=== PATIENT | female | born 1965 | race Caucasian/White ===

== ENCOUNTER → 2021-12-10 | Outpatient (CLI) | payer OTHER | END | disposition home or self-care (01) | LOC: LABWHC1 16:09 | PROVIDERS: ATTEND Surgery Plastic and Reconstructive Surgery | DX: I11.9 Hypertensive heart disease without heart failure (principal) | CPT/HCPCS: 36415; 93005 ==

== ENCOUNTER 2022-01-09 12:34 | Day surgery (SDC) | payer OTHER ==
[2021-12-31 11:38] VITALS: BMI 31.8
--- NOTE | 2022-01-09 07:51 | P.GSHP ---
History of Present Illness H&P Date: 01/09/22 CHIEF COMPLAINT: Ventral hernia. HISTORY OF PRESENT ILLNESS: The patient is a 56-year-old female who presents with swelling along the abdomen for over 3 months with pain and tenderness. Findings were consistent with ventral hernia.Now she presents for further evaluation and management. PAST MEDICAL HISTORY: Please see list and reviewed. PAST SURGICAL HISTORY: Please see list and reviewed. MEDICATIONS: Please see list and reviewed. ALLERGIES: Please see list and reviewed. SOCIAL HISTORY: Please see list and reviewed. FAMILY HISTORY: No reports of Crohn disease or ulcerative colitis. REVIEW OF ORGAN SYSTEMS: CONSTITUTIONAL: No reports of fevers or chills. GI: Denies any blood in stools or constipation. HEENT: Denies any trouble with vision, hearing or nosebleeds. No difficulty swallowing. LYMPHATIC: The patient denies any lumps and bumps around the neck. ENDOCRINE: Denies any thyroid disorders. Denies any blood sugar glucose intolerance. RESPIRATORY: Denies pneumonia. Denies any troubles with breathing or dyspnea on exertion. CARDIOVASCULAR: Denies any chest pain, palpitations, or recent heart attacks. Has hypertensive heart disease GENITOURINARY: Denies any blood in urine or increased urinary frequency. MUSCULOSKELETAL: Denies any back pain, stiffness, joint arthritis. NEUROLOGIC: Denies any numbness or tingling along the distal extremities. No seizure disorders or headaches. PSYCHIATRIC: No depression. No suidical ideation. HEMATOLOGIC: Denies any abnormal bleeding or bruising. BREASTS: Denies any breast lumps, pain or nipple discharge. PHYSICAL EXAM: VITAL SIGNS: Stable GENERAL: Well-developed pleasant female in no acute distress. HEENT: No scleral icterus. Extraocular movements grossly intact. Moist buccal mucosa. NECK: Supple without lymphadenopathy. CHEST: Unlabored respirations. Equal bilateral excursions. CARDIOVASCULAR: Regular rate and rhythm. Distal 2+ pulses. ABDOMEN: Soft, nondistended. Periumbilical hernia. Protuberant. MUSCULOSKELETAL: No clubbing, cyanosis, or edema. SKIN: Well perfused. PSYCH: Alert and oriented. No focal or lateralizing signs. ASSESSMENT: 1. Ventral hernia. PLAN: 1. Recommend proceeding with robotic ventral hernia repair with mesh. 2. Benefits and risks of surgical intervention was discussed including possibility of open technique. 3. DVT prophylaxis. 4. Antibiotic prophylaxis. 5. She is elevated risk with hypertensive heart disease Past Medical History Past Medical History: Hypertension Additional Past Medical History / Comment(s): hx varicose veins, History of Any Multi-Drug Resistant Organisms: None Reported Past Surgical History: Appendectomy, Section, Cholecystectomy, Ear Surgery, Hysterectomy Additional Past Surgical History / Comment(s): varicose vein surgery rt leg 10/2021, left leg varicose vein surgery, Past Anesthesia/Blood Transfusion Reactions: No Reported Reaction Past Psychological History: No Psychological Hx Reported Smoking Status: Current some day smoker Past Alcohol Use History: Occasional Additional Past Alcohol Use History / Comment(s): smokes "socially", started smoking age 35 Past Drug Use History: Marijuana Additional Drug Use History / Comment(s): medical card - Past Family History Mother Family Medical History: No Reported History Medications and Allergies Home Medications Medication Instructions Recorded Confirmed Type Fiber Cap 1 tab PO DAILY 12/31/21 12/31/21 History Losartan/Hydrochlorothiazide 1 tab PO QAM 12/31/21 12/31/21 History [Hyzaar 100-25 Tablet] Motrin(Dose Unknown) 1 tab PO DIRECTED PRN 12/31/21 12/31/21 History Allergies Allergy/AdvReac Type Severity Reaction Status Date / Time No Known Allergies Allergy Verified 12/31/21 11:27
[~2022-01-09 12:34] MED LIST: ACETAMINOPHEN TAB 500 MG TAB PO PRN; DEXAMETHASONE SOD PHOSPHATE 4 MG/ML 1 ML VIAL IV ONE; GABAPENTIN 300 MG CAP PO PRN; HEPARIN SODIUM,PORCINE/PF 5,000 UNIT/0.5 ML SYRINGE SQ PRN; HYDROmorphone 0.5 MG/0.5 ML SYRINGE IVP PRN; LACTATED RINGERS 1,000 ML IV SCH; LIDOCAINE 1% (10MG/ML) FOR IV START INTRADERMA PRN; MELOXICAM 7.5 MG TAB PO PRN; MIDAZOLAM 2 MG/2 ML VIAL IV PRN; ONDANSETRON 4 MG/2 ML VIAL IVP ONE; SCOPOLAMINE 1.5MG/72HR PATCH TRANSDERM PRN
[2022-01-09] MEDS ORDERED: ONDANSETRON 4 MG/2 ML VIAL ONE (13:10)
[2022-01-09 13:19] LABS: Glucose,Whole Blood 101 mg/dL (75-99)
[2022-01-09] MEDS ORDERED: DEXAMETHASONE SOD PHOSPHATE 4 MG/ML 1 ML VIAL IVP ONE (13:32)
[2022-01-09] MEDS ORDERED: MIDAZOLAM 2 MG/2 ML VIAL IVP ONE (13:34)
[2022-01-09] MEDS ORDERED: fentaNYL (PF) 50 MCG/ML 2 ML AMP IVP ONE (13:34)
[2022-01-09 13:43] LABS: ALT 18 U/L (4-34); AST 27 U/L (14-36); African American GFR (CKD) >90 (>60 ml/min/1.73 sqM); Albumin 4.7 g/dL (3.5-5.0); Alkaline Phosphatase 69 U/L (38-126); Anion Gap 9 mmol/L; Blood Urea Nitrogen 20 mg/dL (7-17); Calcium 9.8 mg/dL (8.4-10.2); Carbon Dioxide 22 mmol/L (22-30); Chloride 108 mmol/L (98-107); Glucose 104 mg/dL (74-99); Non-African American GFR(CKD) 82 (>60 ml/min/1.73 sqM); Sodium 139 mmol/L (137-145); Total Bilirubin 0.8 mg/dL (0.2-1.3); Total Protein 7.5 g/dL (6.3-8.2)
--- NOTE | 2022-01-09 14:16 | P.ANPRN ---
Procedure Note - Anesthesia - Nerve Block Performed Bilateral Erector Spinae Single Time Out Performed: Yes (1334) Date of Procedure: 01/09/22 Procedure Start Time: 13:35 Procedure Stop Time: 13:41 Location of Patient: PreOp Indication: Acute Post-Operative Pain, Requested by Surgeon Specifically requested for management of pain by : Sally Burns Sedation Type: Sedate with meaningful contact maintained Preparation: Sterile Prep Position: Prone Catheter: None Needle Types: Pajunk Needle Gauge: 21 Ultrasound used to visualize needle placement: Yes Ultrasound used to observe medication spread: Yes Injectate: 0.5% Ropivacaine (see comment for volume) (15cc + 15cc nacl pf each side) Blood Aspirated: No Pain Paresthesia on Injection Noted: No Resistance on Injection: Normal Image Stored and Saved: Yes Events: Uneventful and Well Tolerated
[2022-01-09] MEDS ORDERED: LIDOCAINE 1% INJ 10MG/ML (20 ML MDV) ONE (16:45)
[2022-01-09] MEDS ORDERED: ROPIVACAINE 5 MG/ML 30 ML VIAL ONE (16:45)
[2022-01-09] MEDS ORDERED: HYDROmorphone (PF) 1 MG/ML ONE (16:45)
[2022-01-09] MEDS ORDERED: ROCURONIUM 10 MG/ML (5 ML VIAL) IV ONE (16:45)
[2022-01-09] MEDS ORDERED: PHENYLEPHRINE-0.9% NACL SYG 1,000 MCG/10 ML SYRINGE ONE (16:45)
[2022-01-09] MEDS ORDERED: GLYCOPYRROLATE 0.2 MG/ML 2 ML VIAL ONE (16:45)
[2022-01-09] MEDS ORDERED: NEOSTIGMINE 1 MG/ML 10 ML VIAL ONE (16:45)
[2022-01-09] MEDS ORDERED: SUCCINYLCHOLINE CHLORIDE 100 MG/5 ML SYR IV ONE (16:45)
[2022-01-09] MEDS ORDERED: MIDAZOLAM 2 MG/2 ML VIAL ONE (16:45)
[2022-01-09] MEDS ORDERED: PROPOFOL 10 MG/ML 20 ML VIAL IV ONE (16:45)
[2022-01-09] MEDS ORDERED: SODIUM CHLORIDE 0.9% (PF) 10 ML VIAL ONE (16:45)
[2022-01-09] MEDS ORDERED: fentaNYL (PF) 50 MCG/ML 2 ML AMP ONE (16:45)
[2022-01-09] MEDS ORDERED: BUPIVACAIN-EPI 0.25%-1:200,000 30 ML VIAL SQ ONE (17:34)
[2022-01-09] MEDS ORDERED: HYDROmorphone 1 MG/ML 1 ML SYRINGE IVP PRN (18:33)
[2022-01-09] MEDS ORDERED: KETOROLAC 30 MG/ML 1 ML VIAL IVP PRN (18:33)
[2022-01-09] MEDS ORDERED: oxyCODONE-APAP 7.5-325MG 1 EACH TAB PO PRN (18:33)
--- NOTE | 2022-01-09 18:37 | P.OP ---
Date of Procedure: 01/09/22 Description of Procedure: SURGEON: SALLY BURNS MD PREOPERATIVE DIAGNOSES: 1. Initial incarcerated adrian-umbilical hernia 2. Hypertensive heart disease 3. Tobacco abuse disorder POSTOPERATIVE DIAGNOSES: 1. Initial incarcerated adrian-umbilical hernia, 2 cm 2. Hypertensive heart disease 3. Tobacco abuse disorder OPERATION: 1. Robotic-assisted da Harmony Xi laparoscopic repair of initial incarcerated adrian-umbilical hernia with mesh, ventralight ST mesh 11.4 cm Anesthesia: GETA, regional, local Estimated Blood Loss (ml): 5 Pathology: None COMPLICATIONS: None. Operative Findings: 1. Superior adrian-umbilical hernia defect 2-cm 2. Fascia repaired using #1 V-lock suture INDICATIONS: The patient is a 56-year-old female who presents initial periumbilical hernia. Surgical intervention with laparoscopic versus robotic and open techniques were reviewed. Placement of mesh was also reviewed. Benefits and risks were thoroughly described. Informed consent was obtained. DESCRIPTION OF PROCEDURE: The patient was brought into the operating room and laid in supine position. After general induction, the abdomen had been prepped and draped in standard sterile fashion. Ioban draping was also placed. Prior to incision, a timeout protocol was confirmed with surgical team regarding the patient's name including procedures to be performed. The robot was primed prior to the procedure. A field block using local anesthetic was placed along hernia site including the proposed port sites. Initial incision was made with an #11 blade along the left upper quadrant. A 0 degree 5 mm laparoscopic trocar entry was performed and insufflated. Three 8 mm ports were placed along the left lateral abdominal wall under direct localization after exchanging the 5-mm for an 8 mm port. Placements of the ports were 15 cm from the target anatomy and 10 cm apart. An accessory 12 mm port was placed at the left upper quadrant for exchange of mesh including sutures. The [employer] robot was previously primed, prepped and draped then docked from the right side of the patient onto the left side of the patient. I then sat at the robot [employer] Xi console where working arms of the robot including Bovie cautery connected to robotic scissors, needle otr company truck driver, and graspers placed by the legal administrative assistant. Incarcerated preperitoneal contents were reduced at the upper midline defect of the umbilicus, 2-cm. The incarcerated contents were reduced as the peritoneal fat was cleaned from the abdominal wall. Next, hemostasis was checked with cautery. The hernia defects were oversewn using #1 nonabsorbable V-lock suture with fascial imbrication x 2. Next, ventralight ST mesh 11.4 cm was placed with the rough side towards the abdominal wall. 2-0 VLOC 9 inch sutures were used to fixate the mesh. A final endoscopic imaging was obtained. All instruments and pneumoperitoneum were evacuated from the abdominal cavity. The da Harmony Xi robot was undocked from the patient. I re-scrubbed into the case for closure of incisions. The fascia of the 12-mm port was probed and less than 8-mm in size. The incisions were reapproximated using 4-0 Monocryl in an interrupted subcuticular fashion. Liquid glue was applied to the skin after cleansing the skin with normal saline and dilute hydrogen peroxide. An abdominal binder was placed. An umbilical dressing was placed prior. At the end of the procedure, needle, sponge, and instrument count had been verified correct by ophthalmology surgical technician. The patient was taken to the postanesthesia care unit in stable condition. Plan - Discharge Summary Discharge Rx Participant: Yes New Discharge Prescriptions: New Ibuprofen [Motrin] 600 mg PO Q8HR PRN #30 tab PRN Reason: Pain Simethicone [Gas-X] 125 mg PO AC-TID PRN #20 capsule PRN Reason: Pain Acetaminophen Tab [Tylenol Tab] 1,000 mg PO Q6HR PRN #30 tablet PRN Reason: Pain Continue Losartan/Hydrochlorothiazide [Hyzaar 100-25 Tablet] 1 tab PO QAM Fiber Cap 1 tab PO DAILY Discontinued Motrin(Dose Unknown) 1 tab PO DIRECTED PRN PRN Reason: Pain Discharge Medication List Fiber Cap 1 tab PO DAILY 12/31/21 [History] Losartan/Hydrochlorothiazide [Hyzaar 100-25 Tablet] 1 tab PO QAM 12/31/21 [History] Acetaminophen Tab [Tylenol Tab] 1,000 mg PO Q6HR PRN #30 tablet 01/09/22 [Rx] Ibuprofen [Motrin] 600 mg PO Q8HR PRN #30 tab 01/09/22 [Rx] Simethicone [Gas-X] 125 mg PO AC-TID PRN #20 capsule 01/09/22 [Rx] Follow up Appointment(s)/Referral(s): Sally Burns MD [STAFF PHYSICIAN] - 01/14/22 (Telehealth available) Patient Instructions/Handouts: Laparoscopic Herniorrhaphy (IP), Umbilical Hernia Repair (DC), Abdominal Binder (DC), *[facility] - Managing Your Pain After Surgery Without Opioids Activity/Diet/Wound Care/Special Instructions: No lifting for 4 pounds in 4 weeks, February 06. Wear abdominal binder daily for comfort except for showering. Using antibacterial soap such as Hibiclens May shower. No bathtub soaks for 2 weeks, January 23 Use ice along incisions for today to prevent swelling. Discharge Disposition: HOME SELF-CARE
[2022-01-09 18:46] VITALS: TEMP 97.3
[2022-01-09] MEDS ORDERED: HYDROmorphone 0.5 MG/0.5 ML SYRINGE IVP ONE (18:51)
[2022-01-09] MEDS ORDERED: KETOROLAC 15 MG/ML 1 ML VIAL IVP ONE (19:01)
[2022-01-09] MEDS ORDERED: LACTATED RINGERS 1,000 ML IV ONE ×2 (19:07)
[2022-01-09 20:15] VITALS: RESP 16
[2022-01-09 20:16] VITALS: BP 119/71; PULSE 62
== END 2022-01-09 20:55 | disposition home or self-care (01) ==
LOC: OR 12:34
PROVIDERS: ATTEND Surgery Plastic and Reconstructive Surgery
DX: K42.0 Umbilical hernia with obstruction, without gangrene (principal); I11.9 Hypertensive heart disease without heart failure; Z72.0 Tobacco use; I83.90 Asymptomatic varicose veins of unspecified lower extremity; F17.200 Nicotine dependence, unspecified, uncomplicated; Z79.899 Other long term (current) drug therapy
CPT/HCPCS: 49587; S2900; 64999; 80053

== ENCOUNTER 2022-01-11 11:27 | Inpatient (IN) | payer OTHER ==
[2022-01-11] MEDS ORDERED: HYDROmorphone 1 MG/ML 1 ML SYRINGE IVP STA (11:59)
[2022-01-11] MEDS ORDERED: ONDANSETRON 4 MG/2 ML VIAL IVP STA (12:01)
[2022-01-11] MEDS ORDERED: SODIUM CHLORIDE 0.9% 2,000 ML IV STA (12:03)
[2022-01-11 12:18] LABS: Basophils % (A) 0 %; Eosinophils # (A) 0.2 k/uL (0-0.7); Eosinophils % (A) 2 %; HCT 35.9 % (34.0-46.0); HGB 11.9 gm/dL (11.4-16.0); Lymphocytes % (A) 10 %; MCH 32.3 pg (25.0-35.0); MCHC 33.2 g/dL (31.0-37.0); MCV 97.4 fL (80.0-100.0); Mean Platelet Volume 8.1; Monocytes # (A) 0.2 k/uL (0-1.0); Monocytes % (A) 2 %; Neutrophils # (A) 8.3 k/uL (1.3-7.7); Neutrophils % (A) 85 %; Platelet Count 244 k/uL (150-450); RBC 3.69 m/uL (3.80-5.40); RDW 12.8 % (11.5-15.5); WBC 9.8 k/uL (3.8-10.6)
--- NOTE | 2022-01-11 12:28 | ED ---
Abdominal Pain HPI - General Chief Complaint: Abdominal Pain Stated Complaint: Post-op complications Time Seen by Provider: 01/11/22 11:49 Source: patient, EMS Mode of arrival: EMS Limitations: no limitations - History of Present Illness Initial Comments: Patient is a 56-year-old female who presents to the emergency department with a chief complaint of increased abdominal pain status post laparoscopic herniorrhaphy on 01/09/22. Patient had repair of an incarcerated umbilical hernia. Patient reports that before surgery her pain was localized in the p eriumbilical region and is now in the right upper quadrant and right lower quadrant of the abdomen. Patient describes it as a constant pulling and pushing, 10/10 in severity. Pain is refractory to Tylenol and ibuprofen. Patient reports intractable nausea and vomiting, unable to keep food and liquids down. Last bowel movement was before surgery. Patient is not passing gas. She reports intermittent chills and headache. Patient states that she has neck pain that is exacerbated with rotation to the right and extension. She denies chest pain, shortness of breath, and urinary symptoms. Patient was evaluated at [facility] and was transferred to [facility] emergency department. - Related Data Home Medications Medication Instructions Recorded Confirmed Fiber Cap 1 tab PO DAILY 12/31/21 01/11/22 Losartan/Hydrochlorothiazide 1 tab PO DAILY 12/31/21 01/11/22 [Hyzaar 100-25 Tablet] Previous Rx's Medication Instructions Recorded Acetaminophen Tab [Tylenol Tab] 1,000 mg PO Q6HR PRN #30 tablet 01/09/22 Ibuprofen [Motrin] 600 mg PO Q8HR PRN #30 tab 01/09/22 Simethicone [Gas-X] 125 mg PO AC-TID PRN #20 capsule 01/09/22 Allergies Allergy/AdvReac Type Severity Reaction Status Date / Time No Known Allergies Allergy Verified 01/11/22 13:16 Review of Systems ROS Statement: Those systems with pertinent positive or pertinent negative responses have been documented in the HPI. ROS Other: All systems not noted in ROS Statement are negative. Past Medical History Past Medical History: No Reported History Additional Past Medical History / Comment(s): ear disorder History of Any Multi-Drug Resistant Organisms: None Reported Past Surgical History: Appendectomy, Cholecystectomy, Hernia Repair, Hysterectomy Past Psychological History: No Psychological Hx Reported Smoking Status: Current some day smoker Past Alcohol Use History: Occasional Past Drug Use History: None Reported General Exam Limitations: no limitations General appearance: alert, in no apparent distress Head exam: Present: atraumatic, normocephalic, normal inspection Eye exam: Present: normal appearance, PERRL, EOMI. Absent: scleral icterus, conjunctival injection, periorbital swelling ENT exam: Present: mucous membranes dry Neck exam: Present: normal inspection, tenderness (posterior and ride sided ), full ROM. Absent: meningismus Respiratory exam: Present: normal lung sounds bilaterally. Absent: respiratory distress, wheezes, rales, rhonchi, stridor Cardiovascular Exam: Present: regular rate, normal rhythm, normal heart sounds. Absent: systolic murmur, diastolic murmur, rubs, gallop, clicks GI/Abdominal exam: Present: soft, tenderness (RUQ and RLQ), normal bowel sounds. Absent: distended, guarding, rebound, rigid Neurological exam: Present: alert, oriented X3, CN II-XII intact Psychiatric exam: Present: normal affect, normal mood Skin exam: Present: warm, dry, intact, normal color. Absent: rash Course Vital Signs 01/11/22 01/11/22 01/11/22 11:33 12:13 14:59 Temperature 99.2 F Pulse Rate 103 H 101 H 101 H Respiratory 22 18 18 Rate Blood Pressure 126/87 115/71 137/95 O2 Sat by Pulse 95 94 L 94 L Oximetry Medical Decision Making - Medical Decision Making This is a 56-year-old female who presents with increased abdominal pain status post laparoscopic herniorrhaphy on 01/09/22. Thorough history and examination were performed. Patient is hemodynamically stable. She is afebrile. Laboratory studies were unremarkable. CT of the abdomen and pelvis with contrast reveals no complete bowel obstruction. There is intraperitoneal stranding and f ree fluid in addition to a few foci of free air reflective of recent surgery or early infection. There is dilated terminal ileum or C, and right-sided large bowel a reflective of postop ileus. There is also nonspecific mild wall thickening of the mid transverse colon and distal descending colon with mild adjacent fat straining of unknown clinical units against, could be reactive to recent surgery, infectious, or inflammatory with less likely relation to vascular compromise. Patient given Zofran, Dilaudid, and large fluid bolus. On reevaluation there was temporary improvement in nausea however nausea did return so Reglan was given. Benadryl was given for refractory headache. Case discussed with Dr. Heranndez. Patient will be admitted to Dr. Burns's service for further evaluation and management. Results discussed with patient. Patient verbalizes understanding and is agreeable to plan. On reevaluation patient is resting comfortably. Abdominal pain is markedly decreased and headache is improved. Dr. Dimas is my attending. - Lab Data Result diagrams: 01/11/22 12:06 01/11/22 12:06 Lab Results 01/11/22 01/11/22 01/11/22 Range/Units 12:06 12:06 13:21 WBC 9.8 (3.8-10.6) k/uL RBC 3.69 L (3.80-5.40) m/uL Hgb 11.9 (11.4-16.0) gm/dL Hct 35.9 (34.0-46.0) % MCV 97.4 (80.0-100.0) fL MCH 32.3 (25.0-35.0) pg MCHC 33.2 (31.0-37.0) g/dL RDW 12.8 (11.5-15.5) % Plt Count 244 (150-450) k/uL MPV 8.1 Neutrophils % 85 % Lymphocytes % 10 % Monocytes % 2 % Eosinophils % 2 % Basophils % 0 % Neutrophils # 8.3 H (1.3-7.7) k/uL Lymphocytes # 1.0 (1.0-4.8) k/uL Monocytes # 0.2 (0-1.0) k/uL Eosinophils # 0.2 (0-0.7) k/uL Basophils # 0.0 (0-0.2) k/uL Sodium 134 L (137-145) mmol/L Potassium 3.4 L (3.5-5.1) mmol/L Chloride 103 (98-107) mmol/L Carbon Dioxide 25 (22-30) mmol/L Anion Gap 6 mmol/L BUN 10 (7-17) mg/dL Creatinine 0.68 (0.52-1.04) mg/dL Est GFR (CKD-EPI)AfAm >90 (>60 ml/min/1.73 sqM) Est GFR (CKD-EPI)NonAf >90 (>60 ml/min/1.73 sqM) Glucose 107 H (74-99) mg/dL Calcium 9.0 (8.4-10.2) mg/dL Total Bilirubin 0.9 (0.2-1.3) mg/dL AST 49 H (14-36) U/L ALT 21 (4-34) U/L Alkaline Phosphatase 76 (38-126) U/L Total Protein 6.7 (6.3-8.2) g/dL Albumin 3.9 (3.5-5.0) g/dL Urine Color Yellow Urine Appearance Clear (Clear) Urine pH 5.5 (5.0-8.0) Ur Specific [place] 1.022 (1.001-1.035) Urine Protein Negative (Negative) Urine Glucose (UA) Negative (Negative) Urine Ketones Negative (Negative) Urine Blood Small H (Negative) Urine Nitrite Negative (Negative) Urine Bilirubin Negative (Negative) Urine Urobilinogen <2.0 (<2.0) mg/dL Ur Leukocyte Esterase Negative (Negative) Urine RBC 10 H (0-5) /hpf Urine WBC <1 (0-5) /hpf Ur Squamous Epith Cells 3 (0-4) /hpf Urine Bacteria Rare H (None) /hpf Urine Mucus Rare H (None) /hpf Disposition Clinical Impression: Nausea & vomiting, Abdominal pain Disposition: ADMITTED IP TO THIS HOSP Condition: Fair Referrals: Mack Ballesteros MD [Primary Care Provider] - 1-2 days Time of Disposition: 15:29
[2022-01-11 12:29] LABS: ALT 21 U/L (4-34); AST 49 U/L (14-36); African American GFR (CKD) >90 (>60 ml/min/1.73 sqM); Albumin 3.9 g/dL (3.5-5.0); Alkaline Phosphatase 76 U/L (38-126); Anion Gap 6 mmol/L; Blood Urea Nitrogen 10 mg/dL (7-17); Carbon Dioxide 25 mmol/L (22-30); Chloride 103 mmol/L (98-107); Glucose 107 mg/dL (74-99); Non-African American GFR(CKD) >90 (>60 ml/min/1.73 sqM); Potassium 3.4 mmol/L (3.5-5.1); Sodium 134 mmol/L (137-145); Total Bilirubin 0.9 mg/dL (0.2-1.3); Total Protein 6.7 g/dL (6.3-8.2)
[2022-01-11] MEDS ORDERED: METOCLOPRAMIDE 5 MG/ML 2 ML VIAL IVP STA (13:27)
[2022-01-11 13:45] LABS: Appearance,Urine Clear (Clear); Bacteria,Urine Rare /hpf; Bilirubin,Urine Negative (Negative); Blood,Urine Small (Negative); Color,Urine Yellow; Glucose,Urine (UA) Negative (Negative); Ketones,Urine Negative (Negative); Leukocyte Esterase,Urine Negative (Negative); Mucus,Urine Rare /hpf; Nitrite,Urine Negative (Negative); PH, Urine 5.5 (5.0-8.0); Protein,Urine Negative (Negative); RBC,Urine 10 /hpf (0-5); Specific Gravity,Urine 1.022 (1.001-1.035); Squamous Epithelial Cell,Urine 3 /hpf (0-4); Urobilinogen,Urine <2.0 mg/dL (<2.0); WBC,Urine <1 /hpf (0-5)
[2022-01-11] MEDS ORDERED: diphenhydrAMINE 50 MG/ML 1 ML VIAL IVP STA (14:51)
--- NOTE | 2022-01-11 15:05 | CT ---
EXAMINATION TYPE: CT abdomen pelvis w con DATE OF EXAM: 01/11/2022 HISTORY: Post-op complications CT DLP: 1032.6mGycm Automated Exposure Control for Dose Reduction was Utilized. CONTRAST: CT scan of the abdomen and pelvis is performed with IV Contrast, patient injected with 100 mL of Isov ue 300. COMPARISON: None FINDINGS: LUNG BASES: Trace bilateral pleural effusions and atelectasis. INCLUDED CARDIAC STRUCTURES: No cardiomegaly or pericardial effusion. LIVER: No significant abnormality is appreciated. GALLBLADDER : Surgically removed BILIARY TREE: Prominent extrahepatic common bile duct, not entirely unexpected status post cholecyste ctomy. Correlation with bilirubin levels if clinically indicated. PANCREAS: No significant abnormality is seen. SPLEEN: No significant abnormality is seen. ADRENALS: No significant abnormality is seen. KIDNEYS AND URETERS: No significant abnormality is seen. URINARY BLADDER: No significant abnormality is appreciated. GASTROINTESTINAL SYSTEM: Distal esophagus and stomach are unremarkable. There are mild fluid-filled d istended small bowel loops. The terminal ileum, cecum is not seen in the expected location in the rig ht lower quadrant. The cecum appears to be dilated and is visualized in the mid anterior abdomen infe riorly. Air-fluid levels in the cecum and/or terminal ileum region, difficult to definitely character ize. There is fluid mixed with stool in the colon, the right-sided colon is distended to mildly dilat ed. There is mild wall thickening of the transverse colon anterior abdomen (series 201 image 25). Ant erior to a distended bowel loop seen on image 38 of series 201, there is trace free fluid few foci of free air for example image 37, image 36, 38. Is also mild mesenteric stranding associated with dilat ed transverse bowel loops for example 21/27, image 28. Air is seen in the distal colon. Trace free fluid is seen in the right lower abdomen 60 of series 201. UTERUS/ADNEXA: Uterus is nonvisualized. The adnexa are within normal limit. LYMPH NODES: No enlarged retroperitoneal or pelvic lymph nodes are appreciated. MAJOR VASCULAR STRUCTURES: The aorta is nonaneurysmal. Inferior vena cava is within normal limits. So ft and calcific plaques are seen in the aorta. Soft plaques are seen in the left common iliac artery. OSSEOUS STRUCTURES: No acute osseous abnormalities seen. Degenerative changes scattered throughout th e spine. SOFT TISSUE: Periumbilical anterior abdominal wall stranding few foci of subcutaneous air likely rela nadine to recent surgery. IMPRESSION: 1. No complete bowel obstruction. 2. Intraperitoneal stranding and free fluid in addition to a few foci of free air, may be reflective of recent surgery, difficult to exclude a developing early infection. 3. Dilated TI or cecum and right-sided large bowel maybe reflective of postoperative ileus. Continue d follow-up recommended. 4. Nonspecific mild wall thickening of the mid transverse colon and distal descending colon with mild adjacent fat stranding of unknown clinical significance, could be reactive to recent surgery, could be infectious or inflammatory, less likely this may be related to vascular compromise. Clinical corre lation recommended.
[2022-01-11] MEDS ORDERED: ONDANSETRON 4 MG/2 ML VIAL IVP PRN (15:26)
[2022-01-11] MEDS ORDERED: NALOXONE 0.4 MG/ML 1 ML VIAL IV PRN (15:26)
[2022-01-11] MEDS ORDERED: ACETAMINOPHEN IV (For NPO) 1,000 MG in EMPTY BAG 1 BAG IVPB PRN (17:26)
[2022-01-11] MEDS ORDERED: ACETAMINOPHEN IV (For NPO) 1,000 MG in EMPTY BAG 1 BAG IVPB STA (17:26)
[2022-01-11] MEDS ORDERED: METOCLOPRAMIDE 5 MG/ML 2 ML VIAL IVP SCH (18:00)
[2022-01-11] MEDS ORDERED: METOCLOPRAMIDE 5 MG/ML 2 ML VIAL IVP PRN (18:04)
[2022-01-11] MEDS: HYDROmorphone 1 MG/ML 1 ML SYRINGE IVP PRN (21:20)
[2022-01-11] MEDS: DEXTROSE 5%-0.45% NACL 1,000 ML with POTASSIUM CHLORIDE 20 MEQ IV SCH ×2 (21:21)
[2022-01-11] MEDS: bisacodyL 10 MG SUPP RECTAL SCH (21:21)
[2022-01-12] MEDS: HYDROmorphone 1 MG/ML 1 ML SYRINGE IVP PRN ×4 (02:21→20:31)
[2022-01-12] MEDS: DEXTROSE 5%-0.45% NACL 1,000 ML with POTASSIUM CHLORIDE 20 MEQ IV SCH ×8 (03:20→22:38)
[2022-01-12] MEDS: bisacodyL 10 MG SUPP RECTAL SCH (08:11)
--- NOTE | 2022-01-12 11:27 | P.GSHP ---
History of Present Illness H&P Date: 01/12/22 Chief Complaint: Abdominal pain 56-year-old female underwent laparoscopic repair of an incarcerated incisional hernia on 01/09. Says she felt okay for the first day or 2 postop starting on Thursday evening started experiencing some dizziness, felt unsteady on her feet, at some nausea and then spirits abdominal pain. Patient describes the pain as being diffuse in nature. She was seen at an outside institution then transferred here. Patient has had episodes of nausea and vomiting. Patient had not been passing any gas or stool. Patient was found to have a normal white blood cell count. CAT scan was performed which demonstrated colonic ileus with retained liquid stool and air throughout the colon no significant volume of pneumoperitoneum was present. Patient was kept nothing by mouth. She says she does feel better today. Says she has passed flatus a few times. Patient is also complaining of increased cough and sputum production. Says the sputum is clear. Patient is a smoker. - Review of Systems Comment: The patient denies any acute changes in vision or hearing, no dysphagia or odynophagia, no chest pain or shortness of breath, no dysuria or hematuria, no headache, no runny nose, no rectal bleeding or melena, no unexplained weight loss Past Medical History Past Medical History: No Reported History Additional Past Medical History / Comment(s): ear disorder History of Any Multi-Drug Resistant Organisms: None Reported Past Surgical History: Appendectomy, Cholecystectomy, Hernia Repair, Hyste rectomy Additional Past Surgical History / Comment(s): laser vericose veins 2 mo ago Smoking Status: Current every day smoker - Past Family History Father Family Medical History: CVA/TIA, Diabetes Mellitus Medications and Allergies Home Medications Medication Instructions Recorded Confirmed Type Fiber Cap 1 tab PO DAILY 12/31/21 01/11/22 History Losartan/Hydrochlorothiazide 1 tab PO DAILY 12/31/21 01/11/22 History [Hyzaar 100-25 Tablet] Acetaminophen Tab [Tylenol Tab] 1,000 mg PO Q6HR PRN #30 tablet 01/09/22 01/11/22 Rx Ibuprofen [Motrin] 600 mg PO Q8HR PRN #30 tab 01/09/22 01/11/22 Rx Simethicone [Gas-X] 125 mg PO AC-TID PRN #20 capsule 01/09/22 01/11/22 Rx Allergies Allergy/AdvReac Type Severity Reaction Status Date / Time No Known Allergies Allergy Verified 01/11/22 13:16 Surgical - Exam Vital Signs Temp Pulse Resp BP Pulse Ox 99.2 F 103 H 22 126/87 95 01/11/22 11:33 01/11/22 11:33 01/11/22 11:33 01/11/22 11:33 01/11/22 11:33 Physical exam: General: Well-developed, well-nourished, sitting in the bedside chair appears comfortable HEENT: Normocephalic, sclerae nonicteric Abdomen: Mildly distended, mild diffuse tenderness, incisions clean and dry Extremities: No edema Neuro: Alert and oriented Results - Labs 01/11/22 12:06 01/11/22 12:06 Abnormal Lab Results - Last 24 Hours (Table) 01/11/22 01/11/22 01/11/22 Range/Units 12:06 12:06 13:21 RBC 3.69 L (3.80-5.40) m/uL Neutrophils # 8.3 H (1.3-7.7) k/uL Sodium 134 L (137-145) mmol/L Potassium 3.4 L (3.5-5.1) mmol/L Glucose 107 H (74-99) mg/dL AST 49 H (14-36) U/L Urine Blood Small H (Negative) Urine RBC 10 H (0-5) /hpf Urine Bacteria Rare H (None) /hpf Urine Mucus Rare H (None) /hpf Diabetes panel 01/11/22 Range/Units 12:06 Sodium 134 L (137-145) mmol/L Potassium 3.4 L (3.5-5.1) mmol/L Chloride 103 (98-107) mmol/L Carbon Dioxide 25 (22-30) mmol/L BUN 10 (7-17) mg/dL Creatinine 0.68 (0.52-1.04) mg/dL Glucose 107 H (74-99) mg/dL Calcium 9.0 (8.4-10.2) mg/dL AST 49 H (14-36) U/L ALT 21 (4-34) U/L Alkaline Phosphatase 76 (38-126) U/L Total Protein 6.7 (6.3-8.2) g/dL Albumin 3.9 (3.5-5.0) g/dL Calcium panel 01/11/22 Range/Units 12:06 Calcium 9.0 (8.4-10.2) mg/dL Albumin 3.9 (3.5-5.0) g/dL Pituitary panel 01/11/22 Range/Units 12:06 Sodium 134 L (137-145) mmol/L Potassium 3.4 L (3.5-5.1) mmol/L Chloride 103 (98-107) mmol/L Carbon Dioxide 25 (22-30) mmol/L BUN 10 (7-17) mg/dL Creatinine 0.68 (0.52-1.04) mg/dL Glucose 107 H (74-99) mg/dL Calcium 9.0 (8.4-10.2) mg/dL Adrenal panel 01/11/22 Range/Units 12:06 Sodium 134 L (137-145) mmol/L Potassium 3.4 L (3.5-5.1) mmol/L Chloride 103 (98-107) mmol/L Carbon Dioxide 25 (22-30) mmol/L BUN 10 (7-17) mg/dL Creatinine 0.68 (0.52-1.04) mg/dL Glucose 107 H (74-99) mg/dL Calcium 9.0 (8.4-10.2) mg/dL Total Bilirubin 0.9 (0.2-1.3) mg/dL AST 49 H (14-36) U/L ALT 21 (4-34) U/L Alkaline Phosphatase 76 (38-126) U/L Total Protein 6.7 (6.3-8.2) g/dL Albumin 3.9 (3.5-5.0) g/dL Assessment and Plan (1) Abdominal pain Narrative/Plan: 56-year-old female with abdominal pain after recent laparoscopic repair incisional hernia. CAT scan suggests colonic ileus. Patient has had some improvement in her ileus with flatus and loose stools overnight. Says she does feel better today. Still having cough and sputum production. We'll consult hospitalist to see regarding the patient's respiratory symptoms. Begin clear liquid diet. Repeat labs tomorrow. Current Visit: Yes Status: Acute Code(s): R10.9 - UNSPECIFIED ABDOMINAL PAIN SNOMED Code(s): 88626818
[2022-01-12] MEDS: LOSARTAN 50 MG TAB PO SCH (12:38)
--- NOTE | 2022-01-12 14:07 | XR ---
EXAMINATION TYPE: XR chest 2V DATE OF EXAM: 01/12/2022 COMPARISON: NONE HISTORY: Cough TECHNIQUE: 2 views FINDINGS: There is small linear densities in the midlung villavicencio. Heart and mediastinum are normal. Th ere is no pleural effusion. There are no hilar masses. Bony thorax is intact. IMPRESSION: Subsegmental atelectasis in the mid lung villavicencio. Normal heart.
[2022-01-12] MEDS: HEPARIN SODIUM,PORCINE/PF 5,000 UNIT/0.5 ML SYRINGE SQ SCH ×2 (14:54→23:37)
--- NOTE | 2022-01-12 15:15 | P.CONS ---
History of Present Illness - Reason for Consult Hyponatremia - History of Present Illness Patient is a 4-year-old female came in with comments of abdominal pain patient had a recent incarcerated incisional hernia repair on december. Patient is found to have some ileus patient subsequently admitted although patient is passing gas burping at this time. Did not move her bowel yet. Medicine was consulted for hyponatremia and management of hypertension. Patient has hyponatremia with sodium of 134/3.4 patient takes an RUIZ inhibitor/diuretic combination for blood pressure. Patient is bit tachycardic as well did patient is probably volume depleted at this time. Patient is getting IV fluids. REVIEW OF SYSTEMS: CONSTITUTIONAL: No fever, no malaise, no fatigue. HEENT: No recent visual problems or hearing problems. Denied any sore throat. CARDIOVASCULAR: No chest pain, orthopnea, PND, no palpitations, no syncope. PULMONARY: No shortness of breath, no cough, no hemoptysis. GASTROINTESTINAL: No diarrhea. NEUROLOGICAL: No headaches, no weakness, no numbness. HEMATOLOGICAL: Denies any bleeding or petechiae. GENITOURINARY: Denies any burning micturition, frequency, or urgency. MUSCULOSKELETAL/RHEUMATOLOGICAL: Denies any joint pain, swelling, or any muscle pain. ENDOCRINE: Denies any polyuria or polydipsia. The rest of the 14-point review of systems is negative. PHYSICAL EXAMINATION: GENERAL: The patient is alert and oriented x3, not in any acute distress. Well developed, well nourished. HEENT: Pupils are round and equally reacting to light. EOMI. No scleral icterus. No conjunctival pallor. Normocephalic, atraumatic. No pharyngeal erythema. No thyromegaly. CARDIOVASCULAR: S1 and S2 present. No murmurs, rubs, or gallops. PULMONARY: Chest is clear to auscultation, no wheezing or crackles. ABDOMEN: Mild distention, tympanic mild tenderness, bowel sounds present. No palpable organomegaly. Surgical site areas appear to be clean MUSCULOSKELETAL: No joint swelling or deformity. EXTREMITIES: No cyanosis, clubbing, or pedal edema. NEUROLOGICAL: Gross neurological examination did not reveal any focal deficits. SKIN: No rashes. Assessment and plan -Hyponatremia secondary to possible hypovolemia or dehydration, and secondary to diuretics diuretics will be held patient will be continued on IV fluids -Hypokalemia potassium was replaced and secondary to diuretics again -Ileus: Management as per primary service -Tachycardia secondary to dehydration expected to improve with IV fluids -Hypertension patient will be continued on losartan -Nicotine cessation counseling was provided DVT prophylaxis: Patient is presently on subcutaneous heparin Past Medical History Past Medical History: No Reported History Additional Past Medical History / Comment(s): ear disorder History of Any Multi-Drug Resistant Organisms: None Reported Past Surgical History: Appendectomy, Cholecystectomy, Hernia Repair, Hysterectomy Additional Past Surgical History / Comment(s): laser vericose veins 2 mo ago Smoking Status: Current every day smoker - Past Family History Father Family Medical History: CVA/TIA, Diabetes Mellitus Medications and Allergies Home Medications Medication Instructions Recorded Confirmed Type Fiber Cap 1 tab PO DAILY 12/31/21 01/11/22 History Losartan/Hydrochlorothiazide 1 tab PO DAILY 12/31/21 01/11/22 History [Hyzaar 100-25 Tablet] Acetaminophen Tab [Tylenol Tab] 1,000 mg PO Q6HR PRN #30 tablet 01/09/22 01/11/22 Rx Ibuprofen [Motrin] 600 mg PO Q8HR PRN #30 tab 01/09/22 01/11/22 Rx Simethicone [Gas-X] 125 mg PO AC-TID PRN #20 capsule 01/09/22 01/11/22 Rx Allergies Allergy/AdvReac Type Severity Reaction Status Date / Time No Known Allergies Allergy Verified 01/11/22 13:16 Physical Exam Vitals: Vital Signs Temp Pulse Pulse Pulse Resp BP BP 01/12/22 14:47 98 F 109 H 18 01/12/22 12:36 96 01/12/22 07:00 98.9 F 94 15 01/12/22 02:12 99.2 F 96 17 134/81 01/11/22 21:00 95 16 01/11/22 19:00 99.1 F 95 16 121/64 01/11/22 17:09 99.8 F H 106 H 16 157/93 01/11/22 16:53 99.8 F H 105 H 16 01/11/22 16:47 99.8 F H 106 H 16 157/93 01/11/22 16:09 100 18 128/92 BP BP Pulse Ox 01/12/22 14:47 137/89 93 L 02/27/22 12:36 151/92 01/12/22 07:00 149/93 97 01/12/22 02:12 95 01/11/22 21:00 01/11/22 19:00 96 01/11/22 17:09 97 01/11/22 16:53 154/97 96 01/11/22 16:47 97 01/11/22 16:09 96 Intake and Output 01/12/22 01/12/22 01/12/22 06:59 14:59 22:59 Other: # Voids 2 1 Results CBC & Chem 7: 01/11/22 12:06 01/11/22 12:06
[2022-01-12] MEDS: SODIUM CHLORIDE 0.9% 1,000 ML IV SCH (16:38)
[2022-01-12] MEDS: FAMOTIDINE 20 MG/2 ML VIAL IV SCH (20:31)
[2022-01-13] MEDS: HYDROmorphone 1 MG/ML 1 ML SYRINGE IVP PRN (04:48)
[2022-01-13] MEDS: SODIUM CHLORIDE 0.9% 1,000 ML IV SCH (05:22)
[2022-01-13] MEDS: DEXTROSE 5%-0.45% NACL 1,000 ML with POTASSIUM CHLORIDE 20 MEQ IV SCH ×2 (05:23)
[2022-01-13] MEDS: FAMOTIDINE 20 MG/2 ML VIAL IV SCH ×2 (08:33→20:03)
[2022-01-13] MEDS: bisacodyL 10 MG SUPP RECTAL SCH (08:33)
[2022-01-13] MEDS: LOSARTAN 50 MG TAB PO SCH (08:33)
[2022-01-13] MEDS: HEPARIN SODIUM,PORCINE/PF 5,000 UNIT/0.5 ML SYRINGE SQ SCH ×2 (08:33→15:43)
[2022-01-13] MEDS: ACETAMINOPHEN TAB 500 MG TAB PO PRN ×2 (09:59→20:02)
[2022-01-13 10:29] LABS: African American GFR (CKD) 119.8 (60.0-200.0); Anion Gap 11.7 mmol/L (10.00-18.00); BUN/Creat Ratio 15.17 Ratio (12.00-20.00); Blood Urea Nitrogen 9.1 mg/dL (9.0-27.0); Calcium 8.8 mg/dL (8.7-10.3); Carbon Dioxide 22.3 mmol/L (20.0-27.5); Non-African American GFR(CKD) 103.3 (60.0-200.0); Potassium 3.6 mmol/L (3.5-5.5)
[2022-01-13] MEDS: IPRATROPIUM-ALBUTEROL 3 ML NEB INHALATION SCH ×3 (12:32→19:41)
--- NOTE | 2022-01-13 14:53 | P.PN ---
Subjective Progress Note Date: 01/13/22 CHIEF COMPLAINT: Abdominal pain HISTORY OF PRESENT ILLNESS: Patient into the hospital with a postoperative ileus. Patient reports improvement in her abdominal pain since admission. She is having liquidy stools and flatus. Did have one episode of vomiting yesterday. She did have a low-grade temperature 100.1 last night. White count 9.8 potassium improved from 3.4-3.8. She's asking for increase in diet. She did report cough and some wheezing. Her chest x-ray from admission showed atelectasis. PHYSICAL EXAM: VITAL SIGNS: Reviewed GENERAL: Well-developed in no acute distress. HEENT: No sclera icterus. Extraocular movements grossly intact. Moist buccal mucosa. Head is atraumatic, normocephalic. Hears conversational speech. No nasal drainage. NECK: Supple without lymphadenopathy. CHEST: Non-labored respirations and equal bilateral excursions. CARDIOVASCULAR: Palpable 2+ radial pulses. ABDOMEN: Soft. Mildly distended. Mild tenderness with palpation lower abdomen. Incision sites clean dry and intact MUSCULOSKELETAL: No clubbing or cyanosis. NEUROLOGIC: No focal or lateralizing signs. Cranial nerves II through XII grossly intact. PSYCH: Appropriate affect. Alert and oriented to person, place and time. SKIN: Well perfused. Good skin turgor. ASSESSMENT: 1. Abdominal pain 2. Postoperative ileus 3. Hypokalemia 4. Cough with wheezing 5. Atelectasis PLAN: -Advance diet to low fiber -Change Reglan to scheduled and add Entereg for ileus -Add oral Tylenol as needed for pain -Add nebulizers for wheezing and atelectasis -Encouraged patient to use incentive spirometer -Encourage patient to ambulate -Possible discharge home tomorrow -GI prophylaxis Pepcid and DVT prophylaxis subcu heparin Physician [employer] Inspector Repairer note has been reviewed by physician. Signing provider agrees with the documented findings, assessment, and plan of care. Objective - Vital Signs Vital signs: Vital Signs Temp 98.5 F 01/13/22 07:00 Pulse 100 01/13/22 12:41 Resp 18 01/13/22 07:00 BP 144/94 01/13/22 07:00 Pulse Ox 98 01/13/22 07:00 Intake & Output 01/12/22 01/13/22 01/13/22 18:59 06:59 18:59 Other: Voiding Method Toilet # Voids 1 2 # Bowel Movements 2 - Labs CBC & Chem 7: 01/11/22 12:06 01/13/22 07:04
[2022-01-13] MEDS: ALVIMOPAN 12 MG CAPSULE PO SCH ×2 (15:43→20:03)
[2022-01-13] MEDS: METOCLOPRAMIDE 5 MG/ML 2 ML VIAL IVP SCH (15:43)
[2022-01-13] MEDS ORDERED: D5-0.45% NACL WITH KCL 20MEQ/L 1,000 ML IV SCH (18:07)
--- NOTE | 2022-01-13 19:23 | P.PN ---
Subjective Progress Note Date: 01/13/22 - Reason for Consult Hyponatremia - History of Present Illness Patient is a 56-year-old female came in with comments of abdominal pain patient had a recent incarcerated incisional hernia repair on december. Patient is found to have some ileus patient subsequently admitted although patient is passing gas burping at this time. Did not move her bowel yet. Medicine was consulted for hyponatremia and management of hypertension. Patient has hyponatremia with sodium of 134/3.4 patient takes an RUIZ inhibitor/diuretic combination for blood pressure. Patient is bit tachycardic as well did patient is probably volume depleted at this time. Patient is getting IV fluids. 01/13/2022 Patient is seen in follow up today and reports to feeling much improved in the abdomen and denies any further nausea or vomiting. Patient reported some mild s hortness of breath and was maintained on IV fluids and chest xray was done showing some atelectasis. Incentive spirometer and breathing inhalational treatments ordered. Patient is diminished on exam with no wheezing noted. Patient diet being advanced and recommend discontinuing IV fluids. Encouraged increased activity as tolerated. Patient denies chest pain or palpitations. Patient is afebrile. Sodium improved REVIEW OF SYSTEMS: CONSTITUTIONAL: No fever, no malaise, no fatigue. CARDIOVASCULAR: No chest pain, orthopnea, PND, no palpitations, no syncope. PULMONARY: No shortness of breath, no cough, no hemoptysis. GASTROINTESTINAL: No diarrhea. no reports of nausea or vomiting, reports im proved abdominal pain NEUROLOGICAL: No headaches, no weakness, no numbness. GENITOURINARY: Denies any burning micturition, frequency, or urgency. PHYSICAL EXAMINATION: GENERAL: The patient is alert and oriented x3, not in any acute distress. Well developed, well nourished. HEENT: Pupils are round and equally reacting to light. EOMI. No scleral icterus. No conjunctival pallor. Normocephalic, atraumatic. No pharyngeal erythema. No thyromegaly. CARDIOVASCULAR: S1 and S2 present. No murmurs, rubs, or gallops. PULMONARY: Chest is diminished, with no wheezing or crackles. ABDOMEN: non-distended, tympanic mild tenderness, bowel sounds present. No palpable organomegaly. Surgical site areas appear to be clean MUSCULOSKELETAL: No joint swelling or deformity. EXTREMITIES: No cyanosis, clubbing, or pedal edema. NEUROLOGICAL: Gross neurological examination did not reveal any focal deficits. SKIN: No rashes. Assessment and plan: -Hyponatremia secondary to possible hypovolemia or dehydration, and secondary to diuretics , improved and is 139 today, discontinue IV fluids, advance diet and encourage oral intake -Hypokalemia, improved -Ileus: Management as per primary service -Tachycardia secondary to dehydration, improved with IV fluids -Hypertension patient to continue on losartan -Continued ongoing nicotine dependence, counseling was provided -DVT prophylaxis: Patient is presently on subcutaneous heparin Plan: Recommend to continue with increased activity as tolerated. Patient is currently receiving IV fluids and sodium and oral intake improved and diet being advanced by surgery. Will discontinue IV fluids and monitor labs. Patient reports to feeling much better and denies any further abdominal pain or nausea or vomiting. Patient is up and tolerating more activity. Family at the bedside and encouraging. Patient is passing gas and reports to liquid stools. Monitor blood pressure closely. Continue to hold hyzaar. Will continue to follow along closely with surgery. Thank you for this consultation. The impression and plan of care has been dictated by Marguerite Rosenthal, nurse practitioner as directed. MD Jonathan I have performed a history and examination and MDM of this patient, discussed the same with the dictator, and agree with the dictator's assessment and plan as written ,documented as a scribe. Based on total visit time, I have performed more than 50% of the visit. Any additional findings or plans will be noted. Objective - Vital Signs Vital signs: Vital Signs Temp 98.5 F 01/13/22 07:00 Pulse 89 01/13/22 07:00 Resp 18 01/13/22 07:00 BP 144/94 01/13/22 07:00 Pulse Ox 98 01/13/22 07:00 Intake & Output 01/12/22 01/13/22 01/13/22 18:59 06:59 18:59 Other: Voiding Method Toilet # Voids 1 2 # Bowel Movements 2 - Labs CBC & Chem 7: 01/11/22 12:06 01/13/22 07:04
[2022-01-14] MEDS: HEPARIN SODIUM,PORCINE/PF 5,000 UNIT/0.5 ML SYRINGE SQ SCH ×2 (00:45→08:35)
[2022-01-14] MEDS: METOCLOPRAMIDE 5 MG/ML 2 ML VIAL IVP SCH ×3 (00:45→11:59)
[2022-01-14] MEDS: ACETAMINOPHEN TAB 500 MG TAB PO PRN ×2 (05:40→11:58)
[2022-01-14] MEDS: IPRATROPIUM-ALBUTEROL 3 ML NEB INHALATION SCH ×3 (07:25→16:27)
[2022-01-14 07:42] VITALS: BP 135/84; RESP 18; TEMP 98.9
[2022-01-14 08:33] LABS: African American GFR (CKD) >90 (>60 ml/min/1.73 sqM); Anion Gap 5 mmol/L; Blood Urea Nitrogen 11 mg/dL (7-17); Carbon Dioxide 27 mmol/L (22-30); Chloride 105 mmol/L (98-107); Glucose 115 mg/dL (74-99); Non-African American GFR(CKD) >90 (>60 ml/min/1.73 sqM); Potassium 3.5 mmol/L (3.5-5.1); Sodium 137 mmol/L (137-145)
[2022-01-14] MEDS: LOSARTAN 50 MG TAB PO SCH (08:37)
[2022-01-14] MEDS: ALVIMOPAN 12 MG CAPSULE PO SCH (08:37)
[2022-01-14] MEDS: bisacodyL 10 MG SUPP RECTAL SCH (08:37)
[2022-01-14] MEDS ORDERED: FAMOTIDINE 20 MG TAB PO SCH (09:00)
[2022-01-14 11:28] VITALS: PULSE 90
--- NOTE | 2022-01-14 12:32 | P.DS ---
Providers Date of admission: 01/13/22 09:59 Expected date of discharge: 01/14/22 Attending physician: Sally Burns Consults: 01/12/22 11:28 Consult Physician Routine Consulting Provider: Kaye Jamison Consult Reason/Comments: Medical management Do you want consulting provider notified?: Yes Primary care physician: Mack Ballesteros Hospital Course: Discharge diagnosis 1. Abdominal pain 2. Postoperative ileus resolved 3. Hypokalemia resolved 4. Atelectasis Hospital course 56-year-old female underwent laparoscopic repair of an incarcerated incisional hernia on 01/09. Says she felt okay for the first day or 2 postop starting on Thursday evening started experiencing some dizziness, felt unsteady on her feet, at some nausea and then abdominal pain. Patient describes the pain as being diffuse in nature. CAT scan was performed which demonstrated colonic ileus with retained liquid stool and air throughout the colon no significant volume of pneumoperitoneum was present. Patient was treated for postoperative ileus. She is tolerating advancement of diet. She is having bowel movements and flatus. She is up and ambulating. Her pain is controlled. She is afebrile. She is stable for discharge. Physician [employer] Essbase Developer note has been reviewed by physician. Signing provider agrees with the documented findings, assessment, and plan of care. Patient Condition at Discharge: Stable Plan - Discharge Summary Discharge Rx Participant: No New Discharge Prescriptions: Continue Fiber Cap 1 tab PO DAILY Ibuprofen [Motrin] 600 mg PO Q8HR PRN #30 tab PRN Reason: Pain Simethicone [Gas-X] 125 mg PO AC-TID PRN #20 capsule PRN Reason: Pain Acetaminophen Tab [Tylenol] 1,000 mg PO Q6HR PRN #30 tablet PRN Reason: Pain No Action Losartan/Hydrochlorothiazide [Hyzaar 100-25 Tablet] 1 tab PO DAILY Discharge Medication List Fiber Cap 1 tab PO DAILY 12/31/21 [History] Losartan/Hydrochlorothiazide [Hyzaar 100-25 Tablet] 1 tab PO DAILY 12/31/21 [History] Acetaminophen Tab [Tylenol] 1,000 mg PO Q6HR PRN #30 tablet 01/09/22 [Rx] Ibuprofen [Motrin] 600 mg PO Q8HR PRN #30 tab 01/09/22 [Rx] Simethicone [Gas-X] 125 mg PO AC-TID PRN #20 capsule 01/09/22 [Rx] Follow up Appointment(s)/Referral(s): Mack Ballesteros MD [Primary Care Provider] - 1-2 days Sally Burns MD [STAFF PHYSICIAN] - 01/21/22 Activity/Diet/Wound Care/Special Instructions: Continue low fiber diet over the next couple of days and then advance as tolerated Discharge Disposition: HOME SELF-CARE
--- NOTE | 2022-01-14 14:48 | P.PN ---
Subjective Progress Note Date: 01/14/22 - Reason for Consult Hyponatremia - History of Present Illness Patient is a 56-year-old female came in with comments of abdominal pain patient had a recent incarcerated incisional hernia repair on december. Patient is found to have some ileus patient subsequently admitted although patient is passing gas burping at this time. Did not move her bowel yet. Medicine was consulted for hyponatremia and management of hypertension. Patient has hyponatremia with sodium of 134/3.4 patient takes an RUIZ inhibitor/diuretic combination for blood pressure. Patient is bit tachycardic as well did patient is probably volume depleted at this time. Patient is getting IV fluids. 01/13/2022 Patient is seen in follow up today and reports to feeling much improved in the abdomen and denies any further nausea or vomiting. Patient reported some mild s hortness of breath and was maintained on IV fluids and chest xray was done showing some atelectasis. Incentive spirometer and breathing inhalational treatments ordered. Patient is diminished on exam with no wheezing noted. Patient diet being advanced and recommend discontinuing IV fluids. Encouraged increased activity as tolerated. Patient denies chest pain or palpitations. Patient is afebrile. Sodium improved 01/14/2022 Patient is seen this morning with no acute overnight issues. Patient has been receiving breathing treatments for minimal wheezing noted on exam may be a component of large volume IV fluids and also patient does have a history of socially smoking. Discussed with her the importance of tobacco cessation and will provide prescription for nicotine patches. Also encourage the patient continue using incentive spirometer at least 10 times every hour while awake and will provide an inhaler on discharge as well for albuterol. She is tolerating diet with no further reports of abdominal pain, nausea or vomiting noted. Patient does take blood pressure medications that is a combination pill with hydrochlorothiazide and will continue with just losartan and asked the patient to follow-up with primary care provider on discharge and keep an eye on blood pressure readings and keep a diary for primary care follow-up. Patient was started on enteric and Pepcid per surgery and will continue with bowel regimen in the outpatient setting. Patient anticipates discharge home today. Sodium is 137, potassium is 3.5, creatinine is 0.73. REVIEW OF SYSTEMS: CONSTITUTIONAL: No fever, no malaise, no fatigue. CARDIOVASCULAR: No chest pain, orthopnea, PND, no palpitations, no syncope. PULMONARY: No shortness of breath, no cough, no hemoptysis. GASTROINTESTINAL: No diarrhea. no reports of nausea or vomiting, reports improved abdominal pain NEUROLOGICAL: No headaches, no weakness, no numbness. GENITOURINARY: Denies any burning micturition, frequency, or urgency. PHYSICAL EXAMINATION: GENERAL: The patient is alert and oriented x3, not in any acute distress. Well developed, well nourished. HEENT: Pupils are round and equally reacting to light. EOMI. No scleral icterus. No conjunctival pallor. Normocephalic, atraumatic. No pharyngeal erythema. No thyromegaly. CARDIOVASCULAR: S1 and S2 present. No murmurs, rubs, or gallops. PULMONARY: Chest is diminished, with minimal expiratory wheezing noted. ABDOMEN: non-distended, tympanic mild tenderness, bowel sounds present. No palpable organomegaly. MUSCULOSKELETAL: No joint swelling or deformity. EXTREMITIES: No cyanosis, clubbing, or pedal edema. NEUROLOGICAL: Gross neurological examination did not reveal any focal deficits. SKIN: No rashes. Assessment and plan: -Hyponatremia secondary to possible hypovolemia or dehydration, and secondary to diuretics , improved -Hypokalemia, improved -Ileus: Management as per primary service -Tachycardia secondary to dehydration, improved with IV fluids -Hypertension patient to continue on losartan and will discontinue hydrochlorothiazide on discharge -Continued ongoing nicotine dependence, counseling was provided, provided nicotine patches for discharge -DVT prophylaxis: Patient is presently on subcutaneous heparin -Full code Plan: Recommend to continue with increased activity as tolerated. Patient is reporting that she is going home today. No acute overnight events noted. Patient tolerating diet with no further abdominal pain, nausea, vomiting noted. Patient states she does continue to have loose stools although denies more frequent and states feels is improving. Patient to continue with incentive spirometer at least 10 times every hour even in the outpatient setting and will also provide nicotine patches along with an inhaler and encouraged the patient to follow-up with primary care provider on discharge and continue to avoid tobacco use. Patient normally takes a combination hydrochlorothiazide losartan pill and will discontinue the hydrochlorothiazide and continue with losartan 100 mg daily and instructed the patient to follow-up with primary care provider. Also recommended monitoring blood pressure and keeping a diary for primary care follow-up of the readings. Will continue to follow along closely with surgery. Thank you for this consultation. Patient reports to being discharged today. The impression and plan of care has been dictated by Marguerite Rosenthal, nurse practitioner as directed. MD Jonathan I have performed a history and examination and MDM of this patient, discussed the same with the dictator, and agree with the dictator's assessment and plan as written ,documented as a scribe. Based on total visit time, I have performed more than 50% of the visit. Any additional findings or plans will be noted. Objective - Vital Signs Vital signs: Vital Signs Temp 98.9 F 01/14/22 07:42 Pulse 78 01/14/22 07:42 Resp 18 01/14/22 07:42 BP 135/84 01/14/22 07:42 Pulse Ox 98 01/14/22 07:42 Intake & Output 01/13/22 01/14/22 01/14/22 18:59 06:59 18:59 Intake Total 120 Balance 120 Intake: Oral 120 Other: # Voids 2 2 - Labs CBC & Chem 7: 01/11/22 12:06 01/14/22 07:39 Labs: Abnormal Lab Results - Last 24 Hours (Table) 01/14/22 Range/Units 07:39 Glucose 115 H (74-99) mg/dL
== END 2022-01-14 16:39 | disposition home or self-care (01) | DRG 394 ==
LOC: EC 11:27 → 6NMEDSUR 15:32 → OBSVTOIN 01-13 09:59
PROVIDERS: ADMIT Surgery Plastic and Reconstructive Surgery; ATTEND Surgery Plastic and Reconstructive Surgery
DX: K91.89 Other postprocedural complications and disorders of digestive system (principal); K56.7 Ileus, unspecified; J98.11 Atelectasis; E87.1 Hypo-osmolality and hyponatremia; T50.2X5A Adverse effect of carbonic-anhydrase inhibitors, benzothiadiazides and other diuretics, initial encounter; R00.0 Tachycardia, unspecified; R05.9 Cough, unspecified; E86.1 Hypovolemia; I10 Essential (primary) hypertension; E87.6 Hypokalemia; E86.0 Dehydration; F17.210 Nicotine dependence, cigarettes, uncomplicated; Z71.6 Tobacco abuse counseling; X58.XXXA Exposure to other specified factors, initial encounter; Z82.3 Family history of stroke; Z83.3 Family history of diabetes mellitus; Z90.710 Acquired absence of both cervix and uterus; Z87.19 Personal history of other diseases of the digestive system; Z90.49 Acquired absence of other specified parts of digestive tract
CPT/HCPCS: 36415; 71046; 74177; 80048; 80053; 81001; 84132; 85025; 94640; 96361; 96374; 96375; 99285

== ENCOUNTER 2022-10-16 11:49 | Day surgery (SDC) | payer OTHER ==
[2022-10-15 08:47] VITALS: BMI 31.1
--- NOTE | 2022-10-16 09:40 | P.GSHP ---
History of Present Illness H&P Date: 10/16/22 CHIEF COMPLAINT: History of intra-abdominal adhesions HISTORY OF PRESENT ILLNESS: The patient is a 57-year-old female who presents with history of intra-abdominal adhesions from multiple prior surgeries including increasing abdominal pain and bowel obstructions. She now presents for diagnostic laparoscopy including lysis of adhesions. PAST MEDICAL HISTORY: Please see list. PAST SURGICAL HISTORY: Please see list. MEDICATIONS: Please see list. ALLERGIES: Please see list. SOCIAL HISTORY: No illicit drug use FAMILY HISTORY: No reports of Crohn disease or ulcerative colitis. REVIEW OF ORGAN SYSTEMS: CONSTITUTIONAL: No reports of fevers or chills. GI: Denies any blood in stools or constipation. PHYSICAL EXAM: VITAL SIGNS: Stable GENERAL: Well-developed pleasant and in no acute distress. HEENT: No scleral icterus. Extraocular movements grossly intact. Moist buccal mucosa. NECK: Supple without lymphadenopathy. CHEST: Unlabored respirations. Equal bilateral excursions. CARDIOVASCULAR: Regular rate and rhythm. Distal 2+ pulses. ABDOMEN: Soft, diffuse abdominal tenderness. No peritonitis. MUSCULOSKELETAL: No clubbing, cyanosis, or edema. ASSESSMENT: 1. Diffuse abdominal pain. 2. History of multiple abdominal surgeries. 3. Intra-abdominal adhesions with bowel obstruction PLAN: 1. Robotic lysis of adhesions were described in detail including risk of injury to the intestine, need for further surgery, and open technique. 2. DVT prophylaxis. 3. Antibiotic prophylaxis. Past Medical History Past Medical History: Hypertension, Pneumonia, Rheumatoid Arthritis (RA) Additional Past Medical History / Comment(s): 25 % hearing loss blanquita., hx of post-op ileus after hernia repair., states "walking pneumonia"-completing antibiotic and prednisone dose pack. History of Any Multi-Drug Resistant Organisms: None Reported Past Surgical History: Appendectomy, Section, Cholecystectomy, Hernia Repair, Hysterectomy Additional Past Surgical History / Comment(s): laser varicose veins, umbilical hernia repair., blanquita ear surgery on bones.. x2 Past Anesthesia/Blood Transfusion Reactions: No Reported Reaction Past Psychological History: No Psychological Hx Reported Smoking Status: Current some day smoker Past Alcohol Use History: Occasional Additional Past Alcohol Use History / Comment(s): smokes 1 pack every 3-5 days, started smoking age 16. Past Drug Use History: None Reported, Marijuana - Past Family History Father Family Medical History: CVA/TIA, Diabetes Mellitus Sister(s) Family Medical History: Cancer Additional Family Medical History / Comment(s): lung cancer Medications and Allergies Home Medications Medication Instructions Recorded Confirmed Type Acetaminophen [Tylenol Extra 1,000 mg PO DIRECTED PRN 10/15/22 10/15/22 History Strength] Doxycycline [Vibramycin] 100 mg PO BID 10/15/22 10/15/22 History Valsartan/Hydrochlorothiazide 1 each PO DAILY 10/15/22 10/15/22 History [Diovan Hct 320-25 mg Tablet] Vitamin B-12 (Unknown Dose) 1 tab PO DAILY 10/15/22 History predniSONE 10 mg PO DIRECTED 10/15/22 10/15/22 History Allergies Allergy/AdvReac Type Severity Reaction Status Date / Time No Known Allergies Allergy Verified 10/15/22 08:16
[~2022-10-16 11:49] MED LIST changes: -ACETAMINOPHEN TAB 500 MG TAB PO PRN; +ACETAMINOPHEN TAB 500 MG TAB PO STA; -DEXAMETHASONE SOD PHOSPHATE 4 MG/ML 1 ML VIAL IV ONE; -GABAPENTIN 300 MG CAP PO PRN; +GABAPENTIN 300 MG CAP PO STA; -HYDROmorphone 0.5 MG/0.5 ML SYRINGE IVP PRN; -LACTATED RINGERS 1,000 ML IV SCH; -LIDOCAINE 1% (10MG/ML) FOR IV START INTRADERMA PRN; -MELOXICAM 7.5 MG TAB PO PRN; +MELOXICAM 7.5 MG TAB PO SCH; -MIDAZOLAM 2 MG/2 ML VIAL IV PRN; -ONDANSETRON 4 MG/2 ML VIAL IVP ONE; +Pre Op ABX Message 1 EACH MISC MISCELLANE ONE; +SCOPOLAMINE 1 MG/72 HR PATCH TRANSDERM SCH; -SCOPOLAMINE 1.5MG/72HR PATCH TRANSDERM PRN
[2022-10-16] MEDS ORDERED: SCOPOLAMINE 1 MG/72 HR PATCH TRANSDERM STA (12:10)
[2022-10-16] MEDS ORDERED: LACTATED RINGERS 1,000 ML IV SCH (12:10)
[2022-10-16] MEDS ORDERED: HYDROmorphone 0.5 MG/0.5 ML SYRINGE IVP PRN (12:10)
[2022-10-16] MEDS ORDERED: ACETAMINOPHEN TAB 500 MG TAB PO STA (12:10)
[2022-10-16] MEDS ORDERED: GABAPENTIN 300 MG CAP PO STA (12:10)
[2022-10-16] MEDS ORDERED: ONDANSETRON 4 MG/2 ML VIAL IVP ONE (12:10)
[2022-10-16] MEDS ORDERED: MIDAZOLAM 2 MG/2 ML VIAL IV PRN (12:10)
[2022-10-16] MEDS ORDERED: MELOXICAM 7.5 MG TAB PO SCH (12:10)
[2022-10-16] MEDS ORDERED: DEXAMETHASONE SOD PHOSPHATE 4 MG/ML 1 ML VIAL IV ONE (12:10)
[2022-10-16] MEDS ORDERED: LIDOCAINE 1% (10MG/ML) FOR IV START INTRADERMA PRN (12:10)
[2022-10-16 12:59] LABS: Glucose,Whole Blood 97 mg/dL (70-110)
[2022-10-16] MEDS ORDERED: MIDAZOLAM 2 MG/2 ML VIAL IVP ONE ×2 (13:17→14:34)
[2022-10-16 13:20] LABS: Basophils % (A) 1 %; Eosinophils # (A) 0.1 k/uL (0-0.7); Eosinophils % (A) 2 %; HCT 39.9 % (34.0-46.0); HGB 13.3 gm/dL (11.4-16.0); Lymphocytes # (A) 3.6 k/uL (1.0-4.8); Lymphocytes % (A) 47 %; MCH 32.5 pg (25.0-35.0); MCHC 33.3 g/dL (31.0-37.0); MCV 97.5 fL (80.0-100.0); Mean Platelet Volume 8.8; Monocytes # (A) 0.3 k/uL (0-1.0); Monocytes % (A) 4 %; Neutrophils # (A) 3.6 k/uL (1.3-7.7); Neutrophils % (A) 47 %; Platelet Count 316 k/uL (150-450); RBC 4.09 m/uL (3.80-5.40); RDW 13.1 % (11.5-15.5); WBC 7.7 k/uL (3.8-10.6)
[2022-10-16 14:13] LABS: ALT 20 U/L (4-34); AST 22 U/L (14-36); African American GFR (CKD) >90 (>60 ml/min/1.73 sqM); Albumin 4.3 g/dL (3.5-5.0); Alkaline Phosphatase 73 U/L (38-126); Anion Gap 7 mmol/L; Blood Urea Nitrogen 16 mg/dL (7-17); Calcium 9.1 mg/dL (8.4-10.2); Carbon Dioxide 26 mmol/L (22-30); Chloride 104 mmol/L (98-107); Glucose 92 mg/dL (74-99); Non-African American GFR(CKD) >90 (>60 ml/min/1.73 sqM); Potassium 3.9 mmol/L (3.5-5.1); Sodium 137 mmol/L (137-145); Total Bilirubin 0.8 mg/dL (0.2-1.3); Total Protein 6.7 g/dL (6.3-8.2)
[2022-10-16] MEDS ORDERED: PROPOFOL 10 MG/ML 20 ML VIAL IV ONE (14:46)
[2022-10-16] MEDS ORDERED: fentaNYL (PF) 50 MCG/ML 2 ML AMP ONE (14:46)
[2022-10-16] MEDS ORDERED: GLYCOPYRROLATE 0.2 MG/ML 2 ML VIAL ONE (14:46)
[2022-10-16] MEDS ORDERED: SUCCINYLCHOLINE CHLORIDE 200 MG/10 ML VIAL IV ONE (14:46)
[2022-10-16] MEDS ORDERED: NEOSTIGMINE 1 MG/ML 10 ML VIAL ONE (14:46)
[2022-10-16] MEDS ORDERED: ROCURONIUM 10 MG/ML (5 ML VIAL) IV ONE (14:46)
[2022-10-16] MEDS ORDERED: LIDOCAINE 2% INJ 20 MG/ML (2 ML VIAL) ONE (14:46)
--- NOTE | 2022-10-16 15:06 | P.ANPRN ---
Procedure Note - Anesthesia - Nerve Block Performed Bilateral Erector Spinae Single Time Out Performed: Yes (1433) Date of Procedure: 10/16/22 Procedure Start Time: 14:33 Procedure Stop Time: 14:40 Location of Patient: PreOp Indication: Acute Post-Operative Pain, Requested by Surgeon Sedation Type: Sedate with meaningful contact maintained Preparation: Sterile Prep, Sterile Dressing Position: Prone Catheter: None Needle Types: Pajunk Needle Gauge: 21 Ultrasound used to visualize needle placement: Yes Ultrasound used to observe medication spread: Yes Injectate: 0.5% Ropivacaine (see comment for volume) (20 mL of block solution injected on each side. The block solution containing 20 mL of 0.5% preservative-free bupivacaine mixed with 20 mL of preservative-free normal saline, and 4 mg of dexamethasone) Blood Aspirated: No Pain Paresthesia on Injection Noted: No Resistance on Injection: Normal Image Stored and Saved: Yes Events: Uneventful and Well Tolerated (Bilateral erector spinae blocks done at the level of T10.)
[2022-10-16] MEDS ORDERED: BUPIVACAIN-EPI 0.25%-1:200,000 30 ML VIAL SQ ONE (15:20)
[2022-10-16 16:10] VITALS: TEMP 96.8
[2022-10-16] MEDS ORDERED: oxyCODONE-APAP 10-325MG 1 EACH TAB PO PRN (16:14)
[2022-10-16] MEDS ORDERED: KETOROLAC 15 MG/ML 1 ML VIAL IVP PRN (16:14)
--- NOTE | 2022-10-16 16:21 | P.OP ---
Date of Procedure: 10/16/22 Description of Procedure: SURGEON: SALLY BURNS MD PREOPERATIVE DIAGNOSES: 1. Peritoneal adhesions with severe epigastric, right upper quadrant abdominal pain 2. History of small bowel obstruction due to adhesions 3. History of multiple abdominal procedures 4. Postoperative seroma of the abdominal wall POSTOPERATIVE DIAGNOSES: 1. Peritoneal adhesions with severe epigastric, right upper quadrant abdominal pain 2. History of small bowel obstruction due to adhesions 3. History of multiple abdominal procedures 4. Sigmoid volvulus 5. Sigmoid diverticulosis OPERATION: 1. Robotic-assisted da Harmony Xi laparoscopic with lysis of adhesions, over 30 minutes 2. Intraoperative abdominal wall ultrasound ESTIMATED BLOOD LOSS: 5 mL. SPECIMENS REMOVED: None. COMPLICATIONS: None. OPERATIVE FINDINGS: 1. Severe epigastric, right upper quadrant adhesions of omentum to the abdo giles wall 2. Mesh repair intact without recurrent hernia 3. Small bowel unremarkable and investigated from terminal ileum to ligament of Treitz 4. Highly redundant sigmoid colon with intermittent sigmoid volvulus reduced 5. Few sigmoid diverticulosis 6. Resolved seroma of abdominal wall INDICATIONS: The patient is a 57-year-old female who presents with moderate to severe persistent epigastric and right upper quadrant abdominal pain. She has personal history multiple abdominal procedures including ventral hernia repair with mesh. Patient reports persistent pain at prior mesh site. Surgical intervention with diagnostic laparoscopy, lysis of adhesions were described. Informed consent was obtained. Robotic assisted laparoscopic approach was described. Benefits and risks of the procedure including but not limited to bleeding, infection was described. Informed consent was obtained. DESCRIPTION OF PROCEDURE: Patient was brought to the operating room, placed in supine position. After general induction, the abdomen had been prepped and draped in standard sterile fashion. The robotic da Harmony XI system was primed. After a timeout protocol was performed, the patient had been prepped and draped in standard sterile fashion. Prior to incision, intraoperative abdominal ultrasound was performed for patient's history of postoperative abdominal wall seroma of the epigastrium. Ultrasound of soft tissue of the epigastrium demonstrated no cystic or radiolucent areas of the subcutaneous tissue concerning for seroma. The subcutaneous tissue and abdominal wall were heterogeneous. This concluded the ultrasound portion of the case. Images were obtained. The robot was docked along the left lateral abdomen. Please note prior to docking of the robot; however, a 5 mm 0 degrees laparoscopic trocar entry was performed along the left upper quadrant. Next, three 8 mm robotic ports were placed along the left lateral abdominal wall abdomen. Trochars were placed at least 10 to 15 cm away from the target anatomy. Instruments including graspers and scissors with cautery were interchanged by the ophthalmology assistant. I had sat at the console. Greater omental adhesion to the epigastrium and right upper quadrant abdominal wall was identified and sharply divided using vessel sealer for over 30 minutes. Hemostasis was checked. The small bowel was investigated from the cecum at the terminal ileum to the ligament of Treitz without interloop adhesions or bowel obstruction identified. The sigmoid colon was highly redundant with scattered sigmoid diverticulum with reduction of mild sigmoid volvulus. No large or small bowel obstruction was identified. The robot was undocked. All pneumoperitoneum and instruments were evacuated from the abdominal cavity. The incisions were reapproximated using 4-0 Monocryl in an interrupted subcuticular fashion. Please note along the trocar sites, local anesthetic was placed as a field block prior to insertion of all instruments. Exofin was applied to the skin. At the end of the procedure needle, sponge, and instrument count had been verified correct by the histopathology technician. The patient was transferred to postanesthesia care unit in stable condition. Intraoperative findings images were reviewed with the patient's family who were please with the level of care. Plan - Discharge Summary Discharge Rx Participant: Yes New Discharge Prescriptions: New Simethicone [Gas-X] 125 mg PO AC-TID PRN #20 capsule PRN Reason: Pain Ibuprofen [Motrin] 600 mg PO Q8HR PRN #30 tab PRN Reason: Pain Acetaminophen Tab [Tylenol Tab] 1,000 mg PO Q6HR PRN #30 tablet PRN Reason: Pain Continue predniSONE 10 mg PO DIRECTED Vitamin B-12 (Unknown Dose) 1 tab PO DAILY Valsartan/Hydrochlorothiazide [Diovan Hct 320-25 mg Tablet] 1 each PO DAILY Doxycycline [Vibramycin] 100 mg PO BID Acetaminophen [Tylenol Extra Strength] 1,000 mg PO DIRECTED PRN PRN Reason: Pain Discharge Medication List Acetaminophen [Tylenol Extra Strength] 1,000 mg PO DIRECTED PRN 10/15/22 [History] Doxycycline [Vibramycin] 100 mg PO BID 10/15/22 [History] Valsartan/Hydrochlorothiazide [Diovan Hct 320-25 mg Tablet] 1 each PO DAILY 10/15/22 [History] Vitamin B-12 (Unknown Dose) 1 tab PO DAILY 10/15/22 [History] predniSONE 10 mg PO DIRECTED 10/15/22 [History] Acetaminophen Tab [Tylenol Tab] 1,000 mg PO Q6HR PRN #30 tablet 10/16/22 [Rx] Ibuprofen [Motrin] 600 mg PO Q8HR PRN #30 tab 10/16/22 [Rx] Simethicone [Gas-X] 125 mg PO AC-TID PRN #20 capsule 10/16/22 [Rx] Follow up Appointment(s)/Referral(s): Sally Burns MD [STAFF PHYSICIAN] - 10/21/22 (TELE[facility]) Patient Instructions/Handouts: Lysis of Abdominal Adhesions (GEN), *Surgery [facility] - Managing Your Pain After Surgery Without Opioids, Diverticulosis Diet (GEN), Diverticulosis (GEN) Activity/Diet/Wound Care/Special Instructions: May shower. No bathtub soaks for 2 weeks, Oct 30 Use ice along incisions for today to prevent swelling. Take tylenol, aleve/ibuprofen, simethicone scheduled for 3 days for best pain relief Discharge Disposition: HOME SELF-CARE
[2022-10-16] MEDS ORDERED: MEPERIDINE 50 MG/ML SYRINGE IVP ONE (16:28)
[2022-10-16 16:56] VITALS: RESP 16
[2022-10-16 17:41] VITALS: BP 118/79; PULSE 80
== END 2022-10-16 16:30 | disposition home or self-care (01) ==
LOC: OR 11:49
PROVIDERS: ATTEND Surgery Plastic and Reconstructive Surgery
DX: K66.0 Peritoneal adhesions (postprocedural) (postinfection) (principal); I10 Essential (primary) hypertension; M06.9 Rheumatoid arthritis, unspecified; J18.9 Pneumonia, unspecified organism; F17.210 Nicotine dependence, cigarettes, uncomplicated; K56.2 Volvulus; K57.30 Diverticulosis of large intestine without perforation or abscess without bleeding; Z79.52 Long term (current) use of systemic steroids; Z80.1 Family history of malignant neoplasm of trachea, bronchus and lung; Z83.3 Family history of diabetes mellitus; Z90.49 Acquired absence of other specified parts of digestive tract
CPT/HCPCS: 80053; 85025; 44180; J2250; J0330; J1100; J2710; J2175; J0690; J2405; J3010; J1885; J2704; J1170; J1644; J2001